=== PATIENT | male | born 1950 | race Two or more races ===

== ENCOUNTER 2024-08-13 16:52 | Emergency (ER) | payer MEDICAID, SELFPAY ==
[2024-08-13 16:53] VITALS: BMI 28.3
[2024-08-13 16:59] VITALS: BP 150/77; PULSE 77; RESP 18; TEMP 36.6; O2SAT 96
--- NOTE | 2024-08-13 17:07 | XR_ITS ---
Examination: CT abdomen and pelvis without contrast. Coronal 3-D reconstructions. Sagittal 2-D reconstructions. Date and time of exam:August 13, 2024 1729 hrs. Indications: Generalized abdominal pain and right flank pain this week CTDI: vol (mGy): 6.09 DLP: (mGycm): 378 Technique: Axial images of the abdomen have been obtained, 3 mm slice thickness Intravenous contrast material has not been administered. Low dose protocols were performed. One or more of the following dose reduction techniques were used; automated exposure control, adjustment of the mA and/or KV according to patient size, use of iterative reconstruction technique. Findings: 10 mm low-density left lobe liver lesion Small liver calcification 19 mm low-density lower right lobe liver lesion No definite gallstones Spleen not enlarged No pancreatic or adrenal mass No renal or ureteral calculi, no hydronephrosis Abdominal aortic calcification with heavy calcification origin renal arteries No pericecal inflammatory change 17 mm fat-containing umbilical hernia No bowel obstruction No diverticulitis Contracted urinary bladder Transverse prostate dimension 3.8 cm Significant fat-containing inguinal hernia extending into the right scrotum Advanced degenerative disc disease L5-S1 Impression: Low-density liver lesions which may represent cysts, recommend hepatic sonography follow-up No renal or ureteral calculi, no hydronephrosis Mild bilateral renal parenchymal scar formation No CT findings of appendicitis bowel obstruction or diverticulitis Significant fat-containing right inguinal hernia, which does not contain bowel
--- NOTE | 2024-08-13 17:07 | PD.EDRME ---
Rapid Medical Screening Exam RME Arrival date/time: 08/13/24 16:52 74-year-old male presents the emergency department complains of right-sided back pain and flank pain Chief Complaint: Abdominal Pain Time Seen by Provider: 08/13/24 17:00 Vital signs: Vital Signs Temperature 98 F 08/13/24 16:59 Pulse Rate 77 08/13/24 16:59 Respiratory Rate 18 08/13/24 16:59 Blood Pressure 150/77 H 08/13/24 16:59 Pulse Oximetry (%) 96 08/13/24 16:59 Oxygen Delivery Method Room Air 08/13/24 16:59
[2024-08-13 17:29] LABS: Collection Type, Urine Clean Catch
[2024-08-13 17:34] LABS: Bilirubin,Urine Negative (Negative); Blood,Urine 1+ (Negative); Clarity,Urine Clear (Clear/Hazy); Color,Urine Yellow (Lt Yel-Yel); Culture Indicated,Urine Not Indicated; Glucose, Urine Negative (Negative); Ketones,Urine 1+ (Negative); Leukocyte Esterase,Urine Negative (Negative); Nitrite,Urine Negative (Negative); PH,Urine 5.5 (5.0-7.0); Protein,Urine Trace (Neg - Trace); RBC,Urine 6 /hpf (0-3); Squamous Epithelial Cell,Urine < 1 /hpf (0-5); Urobilinogen,Urine Negative mg/dL (0.0-1.0); WBC,Urine 1 /hpf (0-5)
[2024-08-13 17:49] LABS: Basophils % (Auto) 0 % (0-2.5); Eosinophils # (Auto) 0.2 Thou/mm3 (0.0-0.5); Eosinophils % (Auto) 2 % (0-10); Hematocrit 43.7 % (41.0-53.0); Hemoglobin 14.9 g/dL (13.5-16.0); Immature Granulocytes % (Auto) 0 % (0-0); Immature Granulocytes Auto 0.02 Thou/mm3 (0.00-0.00); Lymphocytes # (Auto) 1.7 Thou/mm3 (1.0-4.8); Lymphocytes % (Auto) 26 % (10-50); Mean Corpuscular HGB Conc 34.1 g/dl (31.0-37.0); Mean Corpuscular Hemoglobin 32.5 pg (25.0-35.0); Mean Corpuscular Volume 95 fL (80-100); Monocytes # (Auto) 0.8 Thou/mm3 (0.0-0.8); Monocytes % (Auto) 11 % (0-12); Neutrophils # (Auto) 4.1 Thou/mm3 (1.8-7.7); Neutrophils % (Auto) 60 % (37-80); Nucleated Red Blood Cell % 0 /100 WBC (0); Platelet Count 195 Thou/mm3 (140-440); RDW Standard Deviation 44.9 fL (35.1-43.9); Red Blood Count 4.59 Miln/mm3 (4.50-5.90); White Blood Count 6.8 Thou/mm3 (3.8-10.6)
[2024-08-13 17:59] LABS: Alanine Aminotransferase 30 U/L (10-49); Albumin, Serum 4.8 gm/dL (3.4-4.8); Alkaline Phosphatase 90 U/L (46-116); Anion Gap 9 (7-16); Aspartate Amino Transferase 21 U/L (0-34); BUN/Creatinine Ratio 19 Ratio (12-20); Bilirubin,Total 0.5 mg/dL (0.3-1.2); Blood Urea Nitrogen 17 mg/dL (9-23); Calcium 9.2 mg/dL (8.3-10.6); Calcium (Corrected) 9.2 mg/dL (8.5-10.1); Carbon Dioxide 28.2 mMol/L (20.0-31.0); Chloride 103 mMol/L (98-107); Creatinine (Component) 0.9 mg/dL (0.6-1.3); Estimated Creatinine Clearance 67.7 mL/min (>60); Globulin 2.4 gm/dL (2.3-3.5); Glucose 104 mg/dL (74-106); Lipase 26 U/L (12-53); Osmolality,Calculated 280 (275-295); Potassium 3.8 mMol/L (3.4-5.1); Sodium 140 mMol/L (136-145); Total Protein 7.2 gm/dL (5.7-8.2); eGFR > 60 See Note
[2024-08-13 19:54] VITALS: BP 156/72; PULSE 61; RESP 18; O2SAT 96
--- NOTE | 2024-08-13 19:55 | EDNOTE_ITS ---
ED Abdominal Pain RME/HPI General Chief Complaint: Abdominal Pain Stated complaint: RIGHT ABD PAIN Time seen by provider: 08/13/24 17:00 Arrival date/time: 08/13/24 16:52 RME / HPI RME / HPI narrative: 08/13/24 16:52 74-year-old male presents the emergency department complains of right-sided back pain and flank pain ----- Dr. Seymour?s Main ED Evaluation: 74yo male accompanied by his presents to the ED for a chief complaint of RLQ pain x today. Patient states he was concerned for appendicitis, so he came in for evaluation. Patient denies any nausea, vomiting, diarrhea, fever, chills, sweating, cough, rash, UTI symptoms or any other associated symptoms. Denies any previous abdominal surgeries. 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 No known allergies. Related Data Home Medications ?Medication ?Instructions ?Recorded ?Confirmed lisinopril 5 mg tablet 5 mg PO QDAY #0 tabs 12/13/15 lovastatin 10 mg tablet 10 mg PO QDAY ##90 04/29/16 Previous Rx's ?Medication ?Instructions ?Recorded acetaminophen 500 mg tablet 1,000 mg (2 x 500 mg) PO Q6H PRN 08/13/24 pain 5 days #40 tabs ibuprofen 600 mg tablet 600 mg PO Q6H PRN pain 5 days #20 08/13/24 tabs Allergies Allergy/AdvReac Type Severity Reaction Status Date / Time No Known Allergies Allergy Verified 08/13/24 16:53 Review of Systems Review of Systems Systems Reviewed: All systems reviewed, normal except as documented Narrative Review of Systems: Gen: No fever, no chills, no weight loss EYES: No discharge, no visual changes, no pain HEENT: No ear pain, no congestion, no sore throat PULM: No shortness of breath, no cough, no congestion CV: No chest pain, no dyspnea on exertion, no palpitations GI: No nausea, no vomiting, no diarrhea, + pain, no constipation : No frequency, no urgency, no dysuria Musc/skel: No joint pain, no back pain Skin: No rash. Warm and dry. Psyc: No hallucinations, no depression Heme/Lymph: No easy bleeding or bruising tendencies Neuro: No weakness, no headache Past Medical History Social History SMOKING STATUS: Never smoker ED Exam Narrative Physical exam: GENERAL APPEARANCE: alert and oriented x 4, well-developed, well-nourished, no acute distress VITALS: All vitals were reviewed and the pulse ox is 96% on room air, which is normal according to my interpretation. HEENT: Normocephalic, atraumatic; pupils equal, round, reactive to light; EOMI; mucous membranes pink, moist; oropharynx clear NECK: Supple LUNGS: CTABL; no wheezes, no rales, no rhonchi HEART: Regular rate, regular rhythm; normal S1, S2; no murmurs ABDOMEN: non distended; normal BS; soft, no tenderness, no guarding, no rebound; no masses, no organomegaly, no hernia BACK: no CVA tenderness EXTREMITIES: atraumatic; no edema NEUROLOGIC: awake; alert and oriented x4; cranial nerves II-XII grossly intact; no focal sensory or motor deficits PSYCHIATRIC: appropriate mood and affect SKIN: warm, dry, normal color; no rashes Course Quality Measures none Orders Category Date Time Status CT abdomen pelvis wo con Stat Exams 08/13/24 17:07 Completed CBC Stat Lab 08/13/24 17:19 Completed Comprehensive Metabolic Panel Stat Lab 08/13/24 17:19 Completed Lipase Stat Lab 08/13/24 17:19 Completed UA, C/S IF [Urinalysis, C/S if Indicated] Stat Lab 08/13/24 17:21 Completed Vital Signs Vital signs: Vital Signs Temperature 98 F 08/13/24 16:59 Pulse Rate 77 08/13/24 16:59 Respiratory Rate 18 08/13/24 16:59 Blood Pressure 150/77 H 08/13/24 16:59 Pulse Oximetry (%) 96 08/13/24 16:59 Oxygen Delivery Method Room Air 08/13/24 16:59 Abdominal Pain MDM MDM Narrative MDM Narrative:: Scribe Attestation: 08/13/24 - Addis Duvall am scribing for and in the p resence of Dr. Seymour. Patient data External records reviewed:: [facility] previous records (Per chart review, patient has no previous ED visits or admissions to this facility.) Clinical information provided by:: patient Social determinants that could affect healthcare access:: none Patient has the following chronic illnesses:: none How is presenting disease/condition affected by chronic disease/condition?: no chronic disease Evaluation data The following diagnostics were reviewed and interpreted by me:: lab results and radiology exam(s) Lab and/or radiology exams considered but not ordered:: none Interpretation Summary: CBC is normal, CMP is normal, Lipase is normal, UA is unremarkable, according to my interpretation. ----- [facility] Report Signed Patient: KASSY BOOTHE Record#: [id number] Birthdate: 1950 Age/Sex: 74 / M Location: [facility] Attending Dr: Ordering Physician: Murali VILLANUEVA)Salvador NP Date of Service: 08/13/24 Procedure(s): CT abdomen pelvis wo con Accession Number(s): [id number] cc: Murali VILLANUEVA),Salvador OBRIEN; Brittnee Allred PA-C; Donte Leo MD~ Examination: CT abdomen and pelvis without contrast. Coronal 3-D reconstructions. Sagittal 2-D reconstructions. Date and time of exam:August 13, 2024 1729 hrs. Indications: Generalized abdominal pain and right flank pain this week CTDI: vol (mGy): 6.09 DLP: (mGycm): 378 Technique: Axial images of the abdomen have been obtained, 3 mm slice thickness Intravenous contrast material has not been administered. Low dose protocols were performed. One or more of the following dose reduction techniques were used; automated exposure control, adjustment of the mA and/or KV according to patient size, use of iterative reconstruction technique. Findings: 10 mm low-density left lobe liver lesion Small liver calcification 19 mm low-density lower right lobe liver lesion No definite gallstones Spleen not enlarged No pancreatic or adrenal mass No renal or ureteral calculi, no hydronephrosis Abdominal aortic calcification with heavy calcification origin renal arteries No pericecal inflammatory change 17 mm fat-containing umbilical hernia No bowel obstruction No diverticulitis Contracted urinary bladder Transverse prostate dimension 3.8 cm Significant fat-containing inguinal hernia extending into the right scrotum Advanced degenerative disc disease L5-S1 Impression: Low-density liver lesions which may represent cysts, recommend hepatic sonography follow-up No renal or ureteral calculi, no hydronephrosis Mild bilateral renal parenchymal scar formation No CT findings of appendicitis bowel obstruction or diverticulitis Significant fat-containing right inguinal hernia, which does not contain bowel Dictated By: Donte Leo MD Signed By: <Electronically signed by Donte Leo MD in OV> 08/13/24 3054 Medications / Prescriptions Medications or Prescriptions considered but not ordered:: none Medication administrations:: see above, if any Consultations Consultation(s) initiated? (list below): No Diagnosis Differential diagnosis abdominal pain: acute appendicitis and other (direct inguinal hernia, indirect inguinal hernia, cecal volvulus) Most likely diagnosis given after review of the tests above:: see above Admission Indicated Admission indicated?: not indicated Admission Request Was there a request for admission?: No Disposition Plan Disposition Plan: Discharge Discharge Attestation Discharge Attestation: The patient and all family members were given an opportunity to ask questions and understood the discharge instructions. Discharge instructions specifically effects, indications for sooner follow up or return to the emergency department, and the expected course of current diagnosis. Patient condition: Stable Discharge Plan Plan Patient Disposition: HOME (Self Care) Disposition Comment: Stable for discharge Patient condition on transfer: Stable Prescriptions/Referrals Prescriptions/Med Rec: New ibuprofen 600 mg tablet 600 mg PO Q6H PRN (Reason: pain) 5 Days Qty: 20 0RF acetaminophen 500 mg tablet 1,000 mg PO Q6H PRN (Reason: pain) 5 Days Qty: 40 0RF No Action lisinopril 5 MG tablet 5 mg PO QDAY Qty: 0 lovastatin 10 MG tablet 10 mg PO QDAY Qty: 90 Referrals: Brittnee Allred PA-C [Primary Care Provider] - In 1 week Problem List Clinical Impression: Abdominal pain Patient/Caregiver Discharge Instructions Discharge Activity: activity as tolerated Education Materials: Abdominal Pain, ED Symptoms With Uncertain Cause Additional Instructions: Por favor, consulte con fritz m?dico de cabecera en los pr?ximos d?as. Debe volver al servicio de urgencias si no mejora en 48 horas o si empeora de alg?n modo. [place] Motrin y Tylenol seg?n las indicaciones para el dolor. Todos los an?lisis de esta noche est?n dentro de los l?mites normales. La tomograf?a computarizada de fritz abdomen y pelvis no mostr? signos de apendicitis aguda, patolog?a de la ves?cula biliar, problemas de p?ncreas, problemas intestinales o cualquier otra causa espec?fica de fritz dolor. Asimismo, jill an?lisis de martine fueron tranquilizadores y no mostraron anomal?as en el co mportamiento. Please follow-up with your primary care doctor within the next several days You should return to the emergency department if you are not improving within 48 hours or if you worsen in any way. Please take the Motrin and Tylenol as directed for pain. All of your tests tonight are within normal limits. The CT scan of your abdomen and pelvis showed no signs of acute appendicitis, gallbladder pathology, pancreas problems, bowel problems or any other specific cause of your pain. Likewise your blood work was reassuring and that that showed no behavior abnormalities. Print Language: Dutch Stand Alone Forms: [employer] Award Info., Patient Portal Info Letter
== END 2024-08-13 20:23 | disposition home or self-care (01) ==
PROVIDERS: Nurse Practitioner Primary Care; Emergency Provider Emergency Medicine; PCP Physician Assistant
DX: K40.90 Unilateral inguinal hernia, without obstruction or gangrene, not specified as recurrent (principal); K76.9 Liver disease, unspecified; N28.89 Other specified disorders of kidney and ureter
CPT/HCPCS: 36415; 74176; 80053; 81001; 83690; 85025; 99284

== ENCOUNTER → 2024-08-22 | Outpatient (CLI) | payer OTHER, MEDICAID, SELFPAY ==
--- NOTE | 2024-08-22 08:00 | XR_ITS ---
Examination: CT abdomen without intravenous contrast. Coronal 2-D reconstructions. Sagittal 2-D reconstructions. Date and time of exam:August 22, 2024 0840 hours Comparison August 13, 2024 INDICATIONS: Onset right lower abdominal pain beginning 3 weeks ago, history diagnosis right inguinal hernia CTDI: vol (mGy): 7.89 DLP: (mGycm): 254 Technique: Axial images of the abdomen have been obtained, 3 mm slice thickness, abdomen without intravenous contrast 2-D sagittal coronal reconstructions Low dose protocols were performed. One or more of the following dose reduction techniques were used; automated exposure control, adjustment of the mA and/or KV according to patient size, use of iterative reconstruction technique. Findings: Stable 10 mm anterior liver cyst Small liver calcification Stable medial 17 mm liver cyst No gallstones Spleen is not enlarged No pancreatic or adrenal mass No renal or ureteral calculi, no hydronephrosis Abdominal aortic calcification no aneurysmal dilatation No pericecal inflammatory change Advanced degenerative disc disease L5-S1 Grade 1 anterolisthesis L4 on L5 IMPRESSION: No acute process in the abdomen
== END | disposition home or self-care (01) ==
PROVIDERS: PCP Family Medicine; Referring Provider Nurse Practitioner Family; Visit Provider Nurse Practitioner Family
DX: R10.31 Right lower quadrant pain (principal)
CPT/HCPCS: 74150